=== PATIENT | female | born 1975 | race Caucasian/White ===

== ENCOUNTER 2018-11-09 15:27 | Emergency (ER) | payer BC ==
[2018-11-09 15:35] VITALS: Wt 54.5 kg
[2018-11-09 16:27] LABS: BASOPHILS 0.2 % (0-2); EOSINOPHILS 0.8 % (0-7); HEMATOCRIT 38.5 % (36.0-48.0); HEMOGLOBIN 12.9 g/dL (12-16); IMMATURE GRANULOCYTES 0.2 % (0-5); LYMPHOCYTES 22.4 % (15-50); MCH 32.3 pg (26.0-34.0); MCHC 33.5 g/dL (31.0-37.0); MCV 96.3 fL (80.0-100.0); MEAN PLATELET VOLUME 10.4 fL (7.4-10.4); MONOCYTES 7.6 % (2-11); NEUTROPHILS 68.8 % (40-80); PLATELET COUNT 202 10x3/uL (130-400); RDW 13.3 % (11.5-14.5); WBC 8.5 10x3/uL (4.8-10.8)
[2018-11-09 16:53] LABS: ALBUMIN 3.7 g/dL (3.4-5.0); ALKALINE PHOSPHATASE 91 U/L (46-116); ALT (SGPT) 19 U/L (10-68); BILIRUBIN - TOTAL 0.27 mg/dL (0.2-1.3); CALC OSMOLALITY 281 mosm/kg (275-300); CALCIUM 8.1 mg/dL (8.5-10.1); CARBON DIOXIDE 25.9 mmol/L (21.0-32.0); CHLORIDE - SERUM 107 mmol/L (98-107); CREATININE - SERUM 0.9 mg/dL (0.6-1.3); GLUCOSE 89 mg/dL (74-106); POTASSIUM - SERUM 3.4 mmol/L (3.5-5.1); PROTEIN - SERUM 6.8 g/dL (6.4-8.2); SODIUM 142 mmol/L (136-145); UREA NITROGEN 13 mg/dL (7-18); eGFR NON AFRICAN AMERICAN 72 mL/min (90-120)
[2018-11-09 17:05] LABS: AMYLASE - SERUM 65 U/L (25-115); CKMB 0.8 U/L (0.0-3.6); CREATINE KINASE 72 UL (21-215); LIPASE 153 U/L (73-393); THYROID STIMULATING HORMONE 1.74 uIU/mL (0.36-3.74)
[2018-11-09 17:06] LABS: TROPONIN-I < 0.017 ng/mL (0.000-0.060)
[2018-11-09 17:46] LABS: COLOR YELLOW (YELLOW)
[2018-11-09 17:47] LABS: APPEARANCE CLEAR (CLEAR); BILIRUBIN NEGATIVE (NEGATIVE); GLUCOSE NEGATIVE (NEGATIVE); KETONE NEGATIVE (NEGATIVE); NITRITE NEGATIVE (NEGATIVE); PROTEIN NEGATIVE (NEGATIVE); SPECIFIC GRAVITY 1.025 (1.005-1.020); UROBILINOGEN NORMAL (NORMAL)
[2018-11-09] MEDS ORDERED: CARAFATE1 G PO (18:30)
[2018-11-09 18:57] VITALS: BP 118/89
== END 2018-11-09 18:59 | disposition home or self-care (01) ==
LOC: D.ER 15:27
PROVIDERS: Family Medicine
DX: R55 Syncope and collapse (principal); R07.9 Chest pain, unspecified